=== PATIENT | male | born 1940 | race Caucasian/White ===

== ENCOUNTER 2022-02-05 22:41 | Inpatient (IN) | payer OTHER ==
[2022-02-05] MEDS ORDERED: Vancomycin 1 GM/200 ML BAG ONE (22:52)
[2022-02-05] MEDS ORDERED: Cefepime 2 GM VIAL ONE (22:52)
[2022-02-05 23:10] LABS: #Eosinphils 0.1 thou/uL (0.0-0.7); #Lymphocytes 0.7 thou/uL (1.20-3.40); #Monocytes 1.2 thou/uL (0.11-0.59); #Neutrophils 14.5 thou/uL (1.40-6.50); %Basophils 0.2 % (0.0-1.0); %Eosinophils 0.8 % (0.0-10.0); %Lymphocytes 4.4 % (21.0-51.0); %Monocytes 7.4 % (0.0-10.0); %Neutrophils 87.2 % (42.0-75.0); Hemoglobin 11.8 g/dL (14.0-18.0); Mean Corpuscular HGB CONC 33.3 g/dL (32.0-36.0); Mean Corpuscular Hemoglobin 35.5 pg (27.0-31.0); Platelet Count 325 thou/uL (130-400); RBC Distribution Width 13.7 % (11.5-14.5); Red Blood Cell (RBC) Count 3.33 mill/uL (4.70-6.10); White Blood Cell (WBC) Count 16.6 thou/uL (4.8-10.8)
[2022-02-05 23:27] LABS: MDiff Complete? YES; Macrocytosis SLIGHT = 6-15 cells (100X) (0-5/hpf); Platelet Morphology Comment Appears Adequate; Toxic Granulation SLIGHT
[2022-02-05 23:30] LABS: ALT (SGPT) 23 U/L (8-55); AST (SGOT) 49 U/L (5-34); Albumin 2.5 g/dL (3.4-4.8); Alkaline Phosphatase 187 U/L (40-110); Anion Gap 15 mmol/L (10-20); BUN (Urea Nitrogen) 43 mg/dL (8.4-25.7); Bilirubin, Total 0.9 mg/dL (0.2-1.2); Calc. Creatinine Clearance 0 mL/min (70-130); Calcium 9.4 mg/dL (7.8-10.44); Carbon Dioxide 26 mmol/L (23-31); Chloride 105 mmol/L (98-107); Estimated GFR 46; Globulin 4.5 g/dL (2.4-3.5); Glucose 127 mg/dL (83-110); Potassium 4.4 mmol/L (3.5-5.1); Sodium 142 mmol/L (136-145)
[2022-02-06 00:56] LABS: Bacteria/HPF 2+ HPF (None Seen); Bilirubin Negative (Negative); Blood, Urine 3+ (Negative); Clarity Extra Turbid (Clear); Glucose, Urine (Dipstick) Normal (Negative); Ketone, Urine Negative (Negative); Leukocyte 500 Leu/uL (Negative); Nitrite Negative (Negative); Protein, Urine (Dipstick) 100 mg/dL (Neg-Trace); Specific Gravity, Urine 1.005 (1.002-1.036); Urobilinogen Normal mg/dL (Less than 2); WBC/HPF Greater than 50 HPF (0-3)
[2022-02-06 00:57] LABS: RBC/HPF 21-50 HPF (0-3)
[2022-02-06 04:02] LABS: SARS-CoV-2 NAA Rapid Test DETECTED (NotDetected)
[2022-02-06] MEDS: Dextrose 5 % And 0.9 % NaCl 1,000 ML IV SCH ×2 (04:23→07:50)
[2022-02-06] MEDS ORDERED: Vancomycin HCl 500 MG in Sodium Chloride 0.9% 100 ML IVPB SCH (05:30)
[2022-02-06 06:15] LABS: #Eosinphils 0.2 thou/uL (0.0-0.7); #Lymphocytes 0.5 thou/uL (1.20-3.40); #Monocytes 1.2 thou/uL (0.11-0.59); #Neutrophils 16.2 thou/uL (1.40-6.50); %Lymphocytes 2.7 % (21.0-51.0); %Monocytes 6.5 % (0.0-10.0); %Neutrophils 89.8 % (42.0-75.0); Hemoglobin 10.7 g/dL (14.0-18.0); Mean Corpuscular HGB CONC 32.3 g/dL (32.0-36.0); Mean Corpuscular Hemoglobin 34.3 pg (27.0-31.0); Platelet Count 263 thou/uL (130-400); RBC Distribution Width 13.6 % (11.5-14.5); Red Blood Cell (RBC) Count 3.11 mill/uL (4.70-6.10); White Blood Cell (WBC) Count 18.1 thou/uL (4.8-10.8)
[2022-02-06 06:34] LABS: Anion Gap 14 mmol/L (10-20); BUN (Urea Nitrogen) 40 mg/dL (8.4-25.7); Calc. Creatinine Clearance 55 mL/min (70-130); Calcium 8.3 mg/dL (7.8-10.44); Carbon Dioxide 19 mmol/L (23-31); Chloride 110 mmol/L (98-107); Estimated GFR 59; Glucose 123 mg/dL (83-110); Potassium 3.8 mmol/L (3.5-5.1); Sodium 139 mmol/L (136-145)
[2022-02-06] MEDS ORDERED: Iopamidol 0 ML ONE (07:16)
[2022-02-06] MEDS ORDERED: fentaNYL Citrate/PF 100 MCG/2 ML SYRINGE ONE (07:23)
[2022-02-06] MEDS ORDERED: Albumin 5% 500 ML ONE ×2 (07:28→07:30)
[2022-02-06] MEDS ORDERED: Ketamine 50 MG/ML (10ML VIAL) ONE (07:28)
[2022-02-06] MEDS ORDERED: Phenylephrine 10 MG/ML VIAL ONE ×2 (07:28→08:00)
[2022-02-06] MEDS ORDERED: Norepinephrine 4 MG/4 ML VIAL ONE (07:28)
[2022-02-06] MEDS ORDERED: Dexmedetomidine 200 MCG/2 ML VIAL ONE (07:28)
[2022-02-06] MEDS ORDERED: Sodium Bicarb 50 MEQ/50 ML Abboject 8.4% SYRINGE ONE (07:28)
[2022-02-06] MEDS ORDERED: Sodium Bicarbonate 2.5 MEQ/5 ML VIAL ONE (07:30)
[2022-02-06] MEDS ORDERED: Albumin 5% 0 ML ONE (07:30)
[2022-02-06] MEDS ORDERED: Succinylcholine 200 MG/10 ml SYRINGE FS ONE (08:00)
[2022-02-06] MEDS ORDERED: Dexamethasone 20 MG/5 ML VIAL ONE (08:00)
[2022-02-06] MEDS ORDERED: Rocuronium Bromide 10 MG/ML (10ML VIAL) ONE (08:00)
[2022-02-06] MEDS ORDERED: Ondansetron PF 4 MG/2 ML Vial ONE (08:00)
[2022-02-06] MEDS ORDERED: SUGAMMADEX SODIUM 200 MG/2 ML VIAL ONE (08:42)
[2022-02-06] MEDS ORDERED: Lorazepam 2 MG/ML VIAL IM PRN (09:10)
[2022-02-06] MEDS ORDERED: Lorazepam 1 MG TAB PO PRN (09:10)
[2022-02-06] MEDS ORDERED: Electrolyte Replacement Protocol 1 EACH FS SCH (09:15)
[2022-02-06] MEDS: Cefepime 2 GM in Sodium Chloride 0.9% 100 ML IVPB SCH (11:45)
[2022-02-06] MEDS: Thiamine HCl 200 MG/2 ML VIAL SLOW IVP SCH (11:45)
[2022-02-06] MEDS ORDERED: Heparin 1,000 UNITS/ML VIAL ONE (12:34)
[2022-02-06] MEDS ORDERED: Iopamidol 370 76% 100 ML VIAL ONE (15:43)
[2022-02-06] MEDS: Vancomycin 1 GM in Premix Bag 1 BAG IVPB SCH (22:24)
[2022-02-07] MEDS: Cefepime 2 GM in Sodium Chloride 0.9% 100 ML IVPB SCH ×3 (01:11→23:02)
[2022-02-07 04:30] LABS: Anion Gap 13 mmol/L (10-20); BUN (Urea Nitrogen) 35 mg/dL (8.4-25.7); Calc. Creatinine Clearance 63 mL/min (70-130); Calcium 8.7 mg/dL (7.8-10.44); Carbon Dioxide 21 mmol/L (23-31); Chloride 114 mmol/L (98-107); Estimated GFR 69; Glucose 127 mg/dL (83-110); Magnesium 2.2 mg/dL (1.6-2.6); Sodium 144 mmol/L (136-145)
[2022-02-07 05:17] LABS: Band 18 % (5-11); Hemoglobin 9.4 g/dL (14.0-18.0); Lymphocytes 3 % (21-51); MDiff Complete? YES; Mean Corpuscular Hemoglobin 35.7 pg (27.0-31.0); Mean Platelet Volume 8.4 fL (7.4-10.4); Monocytes 3 % (0-10); Neutrophil 76 % (42-75); Platelet Count 257 thou/uL (130-400); RBC Distribution Width 13.6 % (11.5-14.5); Red Blood Cell (RBC) Count 2.64 mill/uL (4.70-6.10); White Blood Cell (WBC) Count 13.8 thou/uL (4.8-10.8)
[2022-02-07] MEDS: Folic Acid 1 MG TAB PO SCH (07:23)
[2022-02-07] MEDS: Ascorbic Acid 500 mg Chewable Tablet PO SCH (07:23)
[2022-02-07] MEDS: Zinc Sulfate 220 MG CAP PO SCH (07:23)
[2022-02-07] MEDS: Enoxaparin Sodium 30 MG/0.3 ML SYRINGE SC SCH (07:23)
[2022-02-07] MEDS: Multivit, Therapeutic 1 TAB PO SCH (07:23)
[2022-02-07] MEDS ORDERED: Lorazepam 1 MG TAB PO PRN (09:10)
[2022-02-07] MEDS: Thiamine HCl 200 MG/2 ML VIAL SLOW IVP SCH (11:47)
[2022-02-07 21:41] LABS: Vancomycin, Trough 17.9 ug/mL
[2022-02-07] MEDS: Vancomycin 1 GM in Premix Bag 1 BAG IVPB SCH (22:54)
[2022-02-08 04:01] LABS: #Monocytes 0.8 thou/uL (0.11-0.59); #Neutrophils 13.9 thou/uL (1.40-6.50); %Eosinophils 0.2 % (0.0-10.0); %Lymphocytes 6.1 % (21.0-51.0); %Monocytes 4.8 % (0.0-10.0); %Neutrophils 88.8 % (42.0-75.0); Hemoglobin 9.7 g/dL (14.0-18.0); Mean Corpuscular HGB CONC 33.1 g/dL (32.0-36.0); Mean Corpuscular Hemoglobin 35.3 pg (27.0-31.0); Mean Platelet Volume 8.4 fL (7.4-10.4); Platelet Count 252 thou/uL (130-400); RBC Distribution Width 13.5 % (11.5-14.5); Red Blood Cell (RBC) Count 2.75 mill/uL (4.70-6.10); White Blood Cell (WBC) Count 15.7 thou/uL (4.8-10.8)
[2022-02-08 04:47] LABS: Anion Gap 15 mmol/L (10-20); BUN (Urea Nitrogen) 37 mg/dL (8.4-25.7); Calc. Creatinine Clearance 71 mL/min (70-130); Calcium 8.7 mg/dL (7.8-10.44); Carbon Dioxide 18 mmol/L (23-31); Chloride 114 mmol/L (98-107); Estimated GFR 79; Glucose 107 mg/dL (83-110); Magnesium 2.4 mg/dL (1.6-2.6); Potassium 4.8 mmol/L (3.5-5.1); Sodium 142 mmol/L (136-145)
[2022-02-08] MEDS: Folic Acid 1 MG TAB PO SCH (07:26)
[2022-02-08] MEDS: Ascorbic Acid 500 mg Chewable Tablet PO SCH (07:26)
[2022-02-08] MEDS: Multivit, Therapeutic 1 TAB PO SCH (07:26)
[2022-02-08] MEDS: Zinc Sulfate 220 MG CAP PO SCH (07:26)
[2022-02-08] MEDS: Enoxaparin Sodium 30 MG/0.3 ML SYRINGE SC SCH (07:27)
[2022-02-08] MEDS: Thiamine HCl 200 MG/2 ML VIAL SLOW IVP SCH (07:27)
[2022-02-08] MEDS ORDERED: Lorazepam 1 MG TAB PO PRN (09:10)
[2022-02-08] MEDS: Ketorolac Tromethamine 30 MG/ML VIAL IVP PRN ×2 (10:37→20:57)
[2022-02-08] MEDS: Cefepime 2 GM in Sodium Chloride 0.9% 100 ML IVPB SCH ×2 (13:07→22:41)
[2022-02-08 16:47] LABS: Anion Gap 11 mmol/L (10-20); BUN (Urea Nitrogen) 38 mg/dL (8.4-25.7); Calc. Creatinine Clearance 62 mL/min (70-130); Carbon Dioxide 24 mmol/L (23-31); Chloride 112 mmol/L (98-107); Estimated GFR 67; Glucose 93 mg/dL (83-110); Potassium 3.7 mmol/L (3.5-5.1); Sodium 143 mmol/L (136-145)
[2022-02-08] MEDS: Vancomycin 1 GM in Premix Bag 1 BAG IVPB SCH (20:56)
[2022-02-09 06:15] LABS: #Eosinphils 0.3 thou/uL (0.0-0.7); #Lymphocytes 1.2 thou/uL (1.20-3.40); #Monocytes 0.8 thou/uL (0.11-0.59); #Neutrophils 9.6 thou/uL (1.40-6.50); %Basophils 0.2 % (0.0-1.0); %Eosinophils 2.1 % (0.0-10.0); %Lymphocytes 10.3 % (21.0-51.0); %Monocytes 6.8 % (0.0-10.0); %Neutrophils 80.5 % (42.0-75.0); Hemoglobin 10.6 g/dL (14.0-18.0); Mean Corpuscular HGB CONC 32.4 g/dL (32.0-36.0); Mean Corpuscular Hemoglobin 34.3 pg (27.0-31.0); Mean Platelet Volume 8.1 fL (7.4-10.4); Platelet Count 245 thou/uL (130-400); RBC Distribution Width 13.4 % (11.5-14.5); White Blood Cell (WBC) Count 11.9 thou/uL (4.8-10.8)
[2022-02-09 06:44] LABS: Anion Gap 12 mmol/L (10-20); BUN (Urea Nitrogen) 45 mg/dL (8.4-25.7); Calc. Creatinine Clearance 68 mL/min (70-130); Calcium 8.7 mg/dL (7.8-10.44); Carbon Dioxide 20 mmol/L (23-31); Chloride 113 mmol/L (98-107); Estimated GFR 76; Glucose 86 mg/dL (83-110); Magnesium 2.3 mg/dL (1.6-2.6); Potassium 4.2 mmol/L (3.5-5.1); Sodium 141 mmol/L (136-145)
[2022-02-09] MEDS: Ascorbic Acid 500 mg Chewable Tablet PO SCH (09:31)
[2022-02-09] MEDS: Zinc Sulfate 220 MG CAP PO SCH (09:31)
[2022-02-09] MEDS: Thiamine 100 MG TAB PO SCH (09:31)
[2022-02-09] MEDS: Multivit, Therapeutic 1 TAB PO SCH (09:31)
[2022-02-09] MEDS: Enoxaparin Sodium 30 MG/0.3 ML SYRINGE SC SCH (09:31)
[2022-02-09] MEDS: Folic Acid 1 MG TAB PO SCH (09:31)
[2022-02-09] MEDS: Ketorolac Tromethamine 30 MG/ML VIAL IVP PRN (11:52)
[2022-02-09] MEDS: Cefepime 2 GM in Sodium Chloride 0.9% 100 ML IVPB SCH ×2 (11:54→22:03)
[2022-02-09 12:39] VITALS: BMI 26.5
[2022-02-09] MEDS: Acetaminophen 325 MG TAB PO PRN ×2 (15:46→19:29)
[2022-02-09] MEDS: Vancomycin 1 GM in Premix Bag 1 BAG IVPB SCH ×2 (22:03→22:46)
[2022-02-09] MEDS: HYDROcodone/Acetaminophen 5/325 mg Tablet PO PRN (22:05)
[2022-02-09 22:19] LABS: Vancomycin, Trough 26.3 ug/mL
[2022-02-09] MEDS ORDERED: Vancomycin 0.001 GM in Premix Bag 1 BAG IVPB SCH (22:45)
[2022-02-10] MEDS: Ascorbic Acid 500 mg Chewable Tablet PO SCH (09:16)
[2022-02-10] MEDS: Enoxaparin Sodium 30 MG/0.3 ML SYRINGE SC SCH (09:17)
[2022-02-10] MEDS: Folic Acid 1 MG TAB PO SCH (09:17)
[2022-02-10] MEDS: Thiamine 100 MG TAB PO SCH (09:17)
[2022-02-10] MEDS: Zinc Sulfate 220 MG CAP PO SCH (09:17)
[2022-02-10] MEDS: Multivit, Therapeutic 1 TAB PO SCH (09:17)
[2022-02-10] MEDS: Ketorolac Tromethamine 30 MG/ML VIAL IVP PRN (11:27)
[2022-02-10] MEDS: Cefepime 2 GM in Sodium Chloride 0.9% 100 ML IVPB SCH ×2 (11:34→22:48)
[2022-02-10] MEDS: Acetaminophen 325 MG TAB PO PRN (16:52)
[2022-02-10 21:17] LABS: Vancomycin, Random 21.4 ug/mL (See Comment)
[2022-02-10] MEDS ORDERED: Vancomycin 0.001 GM in Premix Bag 1 BAG IVPB SCH (22:00)
[2022-02-10] MEDS: HYDROcodone/Acetaminophen 5/325 mg Tablet PO PRN (23:12)
[2022-02-11] MEDS: Melatonin 3 MG TAB PO PRN (00:36)
[2022-02-11] MEDS: Morphine 2 MG/ML VIAL SLOW IVP PRN ×4 (05:08→17:41)
[2022-02-11] MEDS: Ascorbic Acid 500 mg Chewable Tablet PO SCH (08:53)
[2022-02-11] MEDS: Acetaminophen 325 MG TAB PO PRN (08:53)
[2022-02-11] MEDS: Zinc Sulfate 220 MG CAP PO SCH (08:53)
[2022-02-11] MEDS: Thiamine 100 MG TAB PO SCH (08:53)
[2022-02-11] MEDS: Multivit, Therapeutic 1 TAB PO SCH (08:53)
[2022-02-11] MEDS: Folic Acid 1 MG TAB PO SCH (08:53)
[2022-02-11] MEDS: Enoxaparin Sodium 30 MG/0.3 ML SYRINGE SC SCH (08:53)
[2022-02-11 09:40] LABS: Vancomycin, Random 17.5 ug/mL (See Comment)
[2022-02-11] MEDS ORDERED: Cefepime 1 GM in Sodium Chloride 0.9% 100 ML IVPB SCH ×2 (11:00→14:00)
[2022-02-11] MEDS ORDERED: Vancomycin HCl 750 MG in Sodium Chloride 0.9% 250 ML 250 ML IVPB SCH (11:00)
[2022-02-11] MEDS ORDERED: Cefepime 1 GM VIAL ONE (11:01)
[2022-02-11] MEDS: Phenazopyridine HCl 100 MG TAB PO SCH ×2 (13:46→22:24)
[2022-02-11] MEDS ORDERED: Meropenem 1 GM in Sodium Chloride 0.9% 100 ML IVPB SCH (22:00)
[2022-02-11] MEDS: Metoprolol Tartrate 25 MG TAB PO SCH (22:25)
[2022-02-12] MEDS: Meropenem 1 GM in Sodium Chloride 0.9% 100 ML IVPB SCH ×3 (05:37→21:12)
[2022-02-12] MEDS: Morphine 2 MG/ML VIAL SLOW IVP PRN ×5 (05:40→21:15)
[2022-02-12] MEDS: Multivit, Therapeutic 1 TAB PO SCH (09:09)
[2022-02-12] MEDS: Phenazopyridine HCl 100 MG TAB PO SCH ×3 (09:09→21:09)
[2022-02-12] MEDS: Enoxaparin Sodium 30 MG/0.3 ML SYRINGE SC SCH (09:09)
[2022-02-12] MEDS: Zinc Sulfate 220 MG CAP PO SCH (09:09)
[2022-02-12] MEDS: Metoprolol Tartrate 25 MG TAB PO SCH ×2 (09:09→21:10)
[2022-02-12] MEDS: Ascorbic Acid 500 mg Chewable Tablet PO SCH (09:09)
[2022-02-12] MEDS: Folic Acid 1 MG TAB PO SCH (09:09)
[2022-02-12] MEDS: Thiamine 100 MG TAB PO SCH (09:10)
[2022-02-12] MEDS: D5W-AA 4.25% with LYTES 1,000 ML IV SCH (16:41)
[2022-02-13] MEDS: Morphine 2 MG/ML VIAL SLOW IVP PRN ×3 (00:01→14:18)
[2022-02-13] MEDS: Meropenem 1 GM in Sodium Chloride 0.9% 100 ML IVPB SCH ×3 (05:40→22:28)
[2022-02-13 05:47] LABS: #Eosinphils 0.7 thou/uL (0.0-0.7); #Lymphocytes 1.2 thou/uL (1.20-3.40); #Neutrophils 8.6 thou/uL (1.40-6.50); %Basophils 0.4 % (0.0-1.0); %Eosinophils 6.5 % (0.0-10.0); %Lymphocytes 10.2 % (21.0-51.0); %Monocytes 8.5 % (0.0-10.0); %Neutrophils 74.5 % (42.0-75.0); Hemoglobin 10.5 g/dL (14.0-18.0); Mean Corpuscular Hemoglobin 33.6 pg (27.0-31.0); Mean Platelet Volume 9.3 fL (7.4-10.4); Platelet Count 224 thou/uL (130-400); Red Blood Cell (RBC) Count 3.13 mill/uL (4.70-6.10); White Blood Cell (WBC) Count 11.5 thou/uL (4.8-10.8)
[2022-02-13 06:09] LABS: Anion Gap 12 mmol/L (10-20); BUN (Urea Nitrogen) 35 mg/dL (8.4-25.7); Calc. Creatinine Clearance 84 mL/min (70-130); Calcium 8.7 mg/dL (7.8-10.44); Carbon Dioxide 20 mmol/L (23-31); Chloride 114 mmol/L (98-107); Estimated GFR 89; Glucose 122 mg/dL (83-110); Potassium 3.7 mmol/L (3.5-5.1); Sodium 142 mmol/L (136-145)
[2022-02-13] MEDS: D5W-AA 4.25% with LYTES 1,000 ML IV SCH (10:05)
[2022-02-13] MEDS: Ascorbic Acid 500 mg Chewable Tablet PO SCH (10:06)
[2022-02-13] MEDS: Folic Acid 1 MG TAB PO SCH (10:06)
[2022-02-13] MEDS: Enoxaparin Sodium 30 MG/0.3 ML SYRINGE SC SCH (10:06)
[2022-02-13] MEDS: Phenazopyridine HCl 100 MG TAB PO SCH ×3 (10:06→22:30)
[2022-02-13] MEDS: Zinc Sulfate 220 MG CAP PO SCH (10:07)
[2022-02-13] MEDS: Multivit, Therapeutic 1 TAB PO SCH (10:07)
[2022-02-13] MEDS: Thiamine 100 MG TAB PO SCH (10:07)
[2022-02-13] MEDS: Metoprolol Tartrate 25 MG TAB PO SCH ×2 (10:07→22:30)
[2022-02-13 10:54] LABS: Vancomycin, Trough 13.1 ug/mL
[2022-02-14] MEDS: Morphine 2 MG/ML VIAL SLOW IVP PRN ×2 (04:25→08:37)
[2022-02-14] MEDS: Meropenem 1 GM in Sodium Chloride 0.9% 100 ML IVPB SCH ×3 (05:23→21:59)
[2022-02-14] MEDS: D5W-AA 4.25% with LYTES 1,000 ML IV SCH (08:34)
[2022-02-14] MEDS: Enoxaparin Sodium 30 MG/0.3 ML SYRINGE SC SCH (08:34)
[2022-02-14] MEDS: Ascorbic Acid 500 mg Chewable Tablet PO SCH (08:35)
[2022-02-14] MEDS: Phenazopyridine HCl 100 MG TAB PO SCH ×3 (08:35→17:27)
[2022-02-14] MEDS: Folic Acid 1 MG TAB PO SCH (08:35)
[2022-02-14] MEDS: Thiamine 100 MG TAB PO SCH (08:35)
[2022-02-14] MEDS: Zinc Sulfate 220 MG CAP PO SCH (08:36)
[2022-02-14] MEDS: Multivit, Therapeutic 1 TAB PO SCH (08:36)
[2022-02-14] MEDS: Metoprolol Tartrate 25 MG TAB PO SCH ×2 (08:36→21:59)
[2022-02-14] MEDS ORDERED: Phenazopyridine HCl 97.5 MG TABLET PO SCH (09:00)
[2022-02-14] MEDS: ALPRAZolam 0.25 MG TAB PO PRN (12:55)
[2022-02-14] MEDS: Acetaminophen 325 MG TAB PO PRN (22:17)
[2022-02-14] MEDS: Melatonin 3 MG TAB PO PRN (22:18)
[2022-02-14] MEDS: Lorazepam 0.5 MG TAB PO PRN (22:18)
[2022-02-15] MEDS: D5W-AA 4.25% with LYTES 1,000 ML IV SCH ×2 (03:45→22:11)
[2022-02-15] MEDS: Meropenem 1 GM in Sodium Chloride 0.9% 100 ML IVPB SCH ×4 (04:29→21:39)
[2022-02-15] MEDS: Ondansetron PF 4 MG/2 ML Vial IVP PRN (06:05)
[2022-02-15] MEDS: Morphine 2 MG/ML VIAL SLOW IVP PRN (06:05)
[2022-02-15] MEDS: Phenazopyridine HCl 100 MG TAB PO SCH ×3 (08:58→17:33)
[2022-02-15] MEDS: Ascorbic Acid 500 mg Chewable Tablet PO SCH (08:59)
[2022-02-15] MEDS: Zinc Sulfate 220 MG CAP PO SCH (08:59)
[2022-02-15] MEDS: Enoxaparin Sodium 30 MG/0.3 ML SYRINGE SC SCH (09:00)
[2022-02-15] MEDS: Thiamine 100 MG TAB PO SCH (09:00)
[2022-02-15] MEDS: Metoprolol Tartrate 25 MG TAB PO SCH ×2 (09:00→21:38)
[2022-02-15] MEDS: Folic Acid 1 MG TAB PO SCH (09:00)
[2022-02-15] MEDS: Multivit, Therapeutic 1 TAB PO SCH (09:00)
[2022-02-15] MEDS: Acetaminophen 325 MG TAB PO PRN ×2 (09:11→21:39)
[2022-02-15] MEDS: Lorazepam 0.5 MG TAB PO PRN ×2 (09:12→21:39)
[2022-02-15] MEDS: Melatonin 3 MG TAB PO PRN (21:38)
[2022-02-16] MEDS: Meropenem 1 GM in Sodium Chloride 0.9% 100 ML IVPB SCH ×3 (05:55→20:20)
[2022-02-16] MEDS: Zinc Sulfate 220 MG CAP PO SCH (08:40)
[2022-02-16] MEDS: Folic Acid 1 MG TAB PO SCH (08:40)
[2022-02-16] MEDS: Acetaminophen 325 MG TAB PO PRN ×2 (08:40→20:25)
[2022-02-16] MEDS: Lorazepam 0.5 MG TAB PO PRN ×3 (08:40→23:27)
[2022-02-16] MEDS: Ascorbic Acid 500 mg Chewable Tablet PO SCH (08:40)
[2022-02-16] MEDS: Metoprolol Tartrate 25 MG TAB PO SCH ×2 (08:40→20:20)
[2022-02-16] MEDS: Ondansetron PF 4 MG/2 ML Vial IVP PRN (08:40)
[2022-02-16] MEDS: Enoxaparin Sodium 30 MG/0.3 ML SYRINGE SC SCH (08:41)
[2022-02-16] MEDS: Phenazopyridine HCl 100 MG TAB PO SCH ×3 (08:41→17:59)
[2022-02-16] MEDS: Multivit, Therapeutic 1 TAB PO SCH (08:41)
[2022-02-16] MEDS: Thiamine 100 MG TAB PO SCH (08:41)
[2022-02-16] MEDS: Morphine 2 MG/ML VIAL SLOW IVP PRN ×4 (09:37→23:27)
[2022-02-16] MEDS: D5W-AA 4.25% with LYTES 1,000 ML IV SCH (17:59)
[2022-02-16] MEDS: Melatonin 3 MG TAB PO PRN (20:19)
[2022-02-16] MEDS: ALPRAZolam 0.25 MG TAB PO PRN (23:27)
[2022-02-17] MEDS: Meropenem 1 GM in Sodium Chloride 0.9% 100 ML IVPB SCH ×3 (05:41→21:09)
[2022-02-17] MEDS: Metoprolol Tartrate 25 MG TAB PO SCH ×2 (08:57→21:09)
[2022-02-17] MEDS: Zinc Sulfate 220 MG CAP PO SCH (08:57)
[2022-02-17] MEDS: Multivit, Therapeutic 1 TAB PO SCH (08:58)
[2022-02-17] MEDS: Thiamine 100 MG TAB PO SCH (08:58)
[2022-02-17] MEDS: Phenazopyridine HCl 100 MG TAB PO SCH ×3 (08:58→17:17)
[2022-02-17] MEDS: Folic Acid 1 MG TAB PO SCH (08:58)
[2022-02-17] MEDS: Enoxaparin Sodium 30 MG/0.3 ML SYRINGE SC SCH (08:58)
[2022-02-17] MEDS: Ascorbic Acid 500 mg Chewable Tablet PO SCH (08:58)
[2022-02-17] MEDS: D5W-AA 4.25% with LYTES 1,000 ML IV SCH (13:27)
[2022-02-17] MEDS: Morphine 2 MG/ML VIAL SLOW IVP PRN (21:08)
[2022-02-17] MEDS: Melatonin 3 MG TAB PO PRN (21:09)
[2022-02-18] MEDS: ALPRAZolam 0.25 MG TAB PO PRN (01:31)
[2022-02-18] MEDS: Morphine 2 MG/ML VIAL SLOW IVP PRN ×2 (01:31→04:12)
[2022-02-18] MEDS: Lorazepam 0.5 MG TAB PO PRN ×2 (04:12→20:51)
[2022-02-18] MEDS: Meropenem 1 GM in Sodium Chloride 0.9% 100 ML IVPB SCH ×3 (06:15→20:52)
[2022-02-18] MEDS: Phenazopyridine HCl 100 MG TAB PO SCH ×3 (09:00→17:43)
[2022-02-18] MEDS: Folic Acid 1 MG TAB PO SCH (09:00)
[2022-02-18] MEDS: Multivit, Therapeutic 1 TAB PO SCH (09:00)
[2022-02-18] MEDS: Enoxaparin Sodium 30 MG/0.3 ML SYRINGE SC SCH (09:00)
[2022-02-18] MEDS: Ascorbic Acid 500 mg Chewable Tablet PO SCH (09:01)
[2022-02-18] MEDS: Zinc Sulfate 220 MG CAP PO SCH (09:01)
[2022-02-18] MEDS: Metoprolol Tartrate 25 MG TAB PO SCH ×2 (09:01→20:51)
[2022-02-18] MEDS: Acetaminophen 325 MG TAB PO PRN ×2 (09:15→20:51)
[2022-02-18] MEDS: Thiamine 100 MG TAB PO SCH (09:16)
[2022-02-18] MEDS: D5W-AA 4.25% with LYTES 1,000 ML IV SCH (09:16)
[2022-02-18] MEDS: Melatonin 3 MG TAB PO PRN (20:52)
[2022-02-19] MEDS: ALPRAZolam 0.25 MG TAB PO PRN ×2 (02:40→21:04)
[2022-02-19] MEDS: Morphine 2 MG/ML VIAL SLOW IVP PRN ×2 (02:40→05:56)
[2022-02-19] MEDS: Lorazepam 0.5 MG TAB PO PRN ×2 (05:56→11:50)
[2022-02-19] MEDS: Meropenem 1 GM in Sodium Chloride 0.9% 100 ML IVPB SCH ×3 (05:56→21:10)
[2022-02-19] MEDS: D5W-AA 4.25% with LYTES 1,000 ML IV SCH (06:50)
[2022-02-19] MEDS: Ascorbic Acid 500 mg Chewable Tablet PO SCH (08:37)
[2022-02-19] MEDS: Multivit, Therapeutic 1 TAB PO SCH (08:37)
[2022-02-19] MEDS: Zinc Sulfate 220 MG CAP PO SCH (08:37)
[2022-02-19] MEDS: Folic Acid 1 MG TAB PO SCH (08:37)
[2022-02-19] MEDS: Thiamine 100 MG TAB PO SCH (08:37)
[2022-02-19] MEDS: Phenazopyridine HCl 100 MG TAB PO SCH ×3 (08:37→16:56)
[2022-02-19] MEDS: Enoxaparin Sodium 30 MG/0.3 ML SYRINGE SC SCH (08:38)
[2022-02-19] MEDS: Metoprolol Tartrate 25 MG TAB PO SCH ×2 (08:40→21:03)
[2022-02-19] MEDS ORDERED: Bisacodyl 5 MG TAB PO PRN (14:52)
[2022-02-19] MEDS ORDERED: Bisacodyl 5 MG TAB PO SCH (15:00)
[2022-02-19] MEDS ORDERED: Megestrol Acetate 40 MG TAB PO SCH (15:00)
[2022-02-19] MEDS: Acetaminophen 325 MG TAB PO PRN (22:40)
[2022-02-20] MEDS: Morphine 2 MG/ML VIAL SLOW IVP PRN ×2 (00:45→16:15)
[2022-02-20] MEDS: Melatonin 3 MG TAB PO PRN (00:45)
[2022-02-20] MEDS: D5W-AA 4.25% with LYTES 1,000 ML IV SCH ×2 (04:54→22:14)
[2022-02-20] MEDS: Lorazepam 0.5 MG TAB PO PRN ×3 (04:56→22:04)
[2022-02-20] MEDS: Meropenem 1 GM in Sodium Chloride 0.9% 100 ML IVPB SCH ×3 (05:47→21:56)
[2022-02-20] MEDS: Enoxaparin Sodium 30 MG/0.3 ML SYRINGE SC SCH (08:24)
[2022-02-20] MEDS: Zinc Sulfate 220 MG CAP PO SCH (08:24)
[2022-02-20] MEDS: Metoprolol Tartrate 25 MG TAB PO SCH ×2 (08:24→22:03)
[2022-02-20] MEDS: Phenazopyridine HCl 100 MG TAB PO SCH ×3 (08:24→17:53)
[2022-02-20] MEDS: Ascorbic Acid 500 mg Chewable Tablet PO SCH (08:24)
[2022-02-20] MEDS: Folic Acid 1 MG TAB PO SCH (08:24)
[2022-02-20] MEDS: Multivit, Therapeutic 1 TAB PO SCH (08:24)
[2022-02-20] MEDS: Megestrol Acetate 40 MG TAB PO SCH (08:25)
[2022-02-20] MEDS: Thiamine 100 MG TAB PO SCH (08:26)
[2022-02-20 09:07] LABS: #Eosinphils 0.4 thou/uL (0.0-0.7); #Lymphocytes 0.8 thou/uL (1.20-3.40); #Monocytes 0.8 thou/uL (0.11-0.59); #Neutrophils 5.2 thou/uL (1.40-6.50); %Basophils 0.3 % (0.0-1.0); %Eosinophils 6.1 % (0.0-10.0); %Lymphocytes 10.5 % (21.0-51.0); %Monocytes 10.8 % (0.0-10.0); %Neutrophils 72.4 % (42.0-75.0); Hemoglobin 9.9 g/dL (14.0-18.0); Mean Corpuscular HGB CONC 32.6 g/dL (32.0-36.0); Mean Platelet Volume 9.2 fL (7.4-10.4); Platelet Count 242 thou/uL (130-400); RBC Distribution Width 14.2 % (11.5-14.5); White Blood Cell (WBC) Count 7.2 thou/uL (4.8-10.8)
[2022-02-20 09:25] LABS: Anion Gap 11 mmol/L (10-20); BUN (Urea Nitrogen) 22 mg/dL (8.4-25.7); Calc. Creatinine Clearance 87 mL/min (70-130); Calcium 9.1 mg/dL (7.8-10.44); Carbon Dioxide 24 mmol/L (23-31); Chloride 105 mmol/L (98-107); Estimated GFR 90; Glucose 111 mg/dL (83-110); Potassium 3.9 mmol/L (3.5-5.1); Sodium 136 mmol/L (136-145)
[2022-02-20] MEDS ORDERED: Trospium 20 MG TAB PO PRN (17:32)
[2022-02-20] MEDS: Acetaminophen 325 MG TAB PO PRN (22:04)
[2022-02-21] MEDS: Meropenem 1 GM in Sodium Chloride 0.9% 100 ML IVPB SCH ×3 (05:07→21:08)
[2022-02-21] MEDS: Trospium 20 MG TAB PO SCH ×2 (09:01→21:09)
[2022-02-21] MEDS: Folic Acid 1 MG TAB PO SCH (09:01)
[2022-02-21] MEDS: Thiamine 100 MG TAB PO SCH (09:01)
[2022-02-21] MEDS: Phenazopyridine HCl 100 MG TAB PO SCH ×3 (09:01→18:29)
[2022-02-21] MEDS: Zinc Sulfate 220 MG CAP PO SCH (09:01)
[2022-02-21] MEDS: Metoprolol Tartrate 25 MG TAB PO SCH ×2 (09:01→21:09)
[2022-02-21] MEDS: Enoxaparin Sodium 40 MG/0.4 ML SYRINGE SC SCH (09:01)
[2022-02-21] MEDS: Ascorbic Acid 500 mg Chewable Tablet PO SCH (09:02)
[2022-02-21] MEDS: Megestrol Acetate 40 MG TAB PO SCH (09:02)
[2022-02-21] MEDS: Multivit, Therapeutic 1 TAB PO SCH (09:02)
[2022-02-21] MEDS: Acetaminophen 325 MG TAB PO PRN ×2 (15:51→21:09)
[2022-02-21] MEDS: D5W-AA 4.25% with LYTES 1,000 ML IV SCH (18:29)
[2022-02-21] MEDS: Lorazepam 0.5 MG TAB PO PRN (21:09)
[2022-02-22] MEDS: Meropenem 1 GM in Sodium Chloride 0.9% 100 ML IVPB SCH ×3 (05:39→23:10)
[2022-02-22 06:03] LABS: #Eosinphils 0.5 thou/uL (0.0-0.7); #Lymphocytes 0.8 thou/uL (1.20-3.40); #Monocytes 0.7 thou/uL (0.11-0.59); #Neutrophils 3.6 thou/uL (1.40-6.50); %Basophils 0.8 % (0.0-1.0); %Eosinophils 8.3 % (0.0-10.0); %Lymphocytes 14.4 % (21.0-51.0); %Monocytes 12.8 % (0.0-10.0); %Neutrophils 63.7 % (42.0-75.0); Hemoglobin 8.6 g/dL (14.0-18.0); Mean Corpuscular HGB CONC 31.9 g/dL (32.0-36.0); Mean Corpuscular Hemoglobin 33.2 pg (27.0-31.0); Mean Platelet Volume 9.1 fL (7.4-10.4); Platelet Count 197 thou/uL (130-400); RBC Distribution Width 13.7 % (11.5-14.5); White Blood Cell (WBC) Count 5.6 thou/uL (4.8-10.8)
[2022-02-22 06:25] LABS: Anion Gap 10 mmol/L (10-20); BUN (Urea Nitrogen) 26 mg/dL (8.4-25.7); Calc. Creatinine Clearance 86 mL/min (70-130); Calcium 8.7 mg/dL (7.8-10.44); Carbon Dioxide 24 mmol/L (23-31); Chloride 106 mmol/L (98-107); Estimated GFR 90; Glucose 89 mg/dL (83-110); Sodium 136 mmol/L (136-145)
[2022-02-22] MEDS: Thiamine 100 MG TAB PO SCH (08:54)
[2022-02-22] MEDS: Phenazopyridine HCl 100 MG TAB PO SCH ×3 (08:54→17:57)
[2022-02-22] MEDS: Multivit, Therapeutic 1 TAB PO SCH (08:54)
[2022-02-22] MEDS: Ascorbic Acid 500 mg Chewable Tablet PO SCH (08:54)
[2022-02-22] MEDS: Zinc Sulfate 220 MG CAP PO SCH (08:54)
[2022-02-22] MEDS: Megestrol Acetate 40 MG TAB PO SCH (08:54)
[2022-02-22] MEDS: Trospium 20 MG TAB PO SCH ×2 (08:54→20:13)
[2022-02-22] MEDS: Metoprolol Tartrate 25 MG TAB PO SCH ×2 (08:54→20:14)
[2022-02-22] MEDS: Enoxaparin Sodium 40 MG/0.4 ML SYRINGE SC SCH (08:55)
[2022-02-22] MEDS: Folic Acid 1 MG TAB PO SCH (08:56)
[2022-02-22] MEDS: Acetaminophen 325 MG TAB PO PRN ×2 (14:57→20:13)
[2022-02-22] MEDS: D5W-AA 4.25% with LYTES 1,000 ML IV SCH (15:12)
[2022-02-22] MEDS: Lorazepam 0.5 MG TAB PO PRN (20:13)
[2022-02-22] MEDS: Melatonin 3 MG TAB PO PRN (20:13)
[2022-02-23] MEDS: Metoprolol Tartrate 25 MG TAB PO SCH ×2 (05:31→20:39)
[2022-02-23] MEDS: Meropenem 1 GM in Sodium Chloride 0.9% 100 ML IVPB SCH ×3 (05:32→20:39)
[2022-02-23] MEDS: Ascorbic Acid 500 mg Chewable Tablet PO SCH (09:23)
[2022-02-23] MEDS: Trospium 20 MG TAB PO SCH ×2 (09:24→20:38)
[2022-02-23] MEDS: Zinc Sulfate 220 MG CAP PO SCH (09:24)
[2022-02-23] MEDS: Thiamine 100 MG TAB PO SCH (09:24)
[2022-02-23] MEDS: Megestrol Acetate 40 MG TAB PO SCH (09:24)
[2022-02-23] MEDS: Folic Acid 1 MG TAB PO SCH (09:24)
[2022-02-23] MEDS: Phenazopyridine HCl 100 MG TAB PO SCH ×3 (09:24→17:32)
[2022-02-23] MEDS: Multivit, Therapeutic 1 TAB PO SCH (09:24)
[2022-02-23] MEDS ORDERED: Bupivacaine PF 0.5% 30 ML VIAL ONE (11:41)
[2022-02-23] MEDS ORDERED: PROPOFOL 200 MG/20 ML VIAL ONE (11:42)
[2022-02-23] MEDS ORDERED: Lidocaine 1% PF 5 ML VIAL ONE (11:42)
[2022-02-23] MEDS ORDERED: Ondansetron PF 4 MG/2 ML Vial ONE (11:42)
[2022-02-23] MEDS ORDERED: ePHEDrine 50 MG/ML VIAL ONE (11:42)
[2022-02-23] MEDS ORDERED: Phenylephrine 10 MG/ML VIAL ONE (11:42)
[2022-02-23] MEDS ORDERED: Promethazine HCl 25 MG/ML VIAL IM PRN (12:23)
[2022-02-23] MEDS ORDERED: Promethazine HCl 25 MG/ML VIAL IVPB PRN (12:23)
[2022-02-23] MEDS ORDERED: Ondansetron HCl/PF 4 MG/2 ML Vial IVP PRN (12:23)
[2022-02-23] MEDS ORDERED: Fentanyl 100 MCG/2 ML VIAL ONE (12:57)
[2022-02-23] MEDS: D5W-AA 4.25% with LYTES 1,000 ML IV SCH (14:45)
[2022-02-24] MEDS: Meropenem 1 GM in Sodium Chloride 0.9% 100 ML IVPB SCH ×2 (05:31→14:39)
[2022-02-24] MEDS: Folic Acid 1 MG TAB PO SCH (08:22)
[2022-02-24] MEDS: Zinc Sulfate 220 MG CAP PO SCH (08:22)
[2022-02-24] MEDS: Phenazopyridine HCl 100 MG TAB PO SCH ×3 (08:22→18:24)
[2022-02-24] MEDS: Trospium 20 MG TAB PO SCH (08:22)
[2022-02-24] MEDS: Ascorbic Acid 500 mg Chewable Tablet PO SCH (08:22)
[2022-02-24] MEDS: Megestrol Acetate 40 MG TAB PO SCH (08:22)
[2022-02-24] MEDS: Metoprolol Tartrate 25 MG TAB PO SCH (08:22)
[2022-02-24] MEDS: Multivit, Therapeutic 1 TAB PO SCH (08:23)
[2022-02-24] MEDS: Thiamine 100 MG TAB PO SCH (08:26)
[2022-02-24 15:22] VITALS: BP 96/59; TEMP 97.7
[2022-02-24] MEDS: ALPRAZolam 0.25 MG TAB PO PRN (19:21)
[2022-02-24] MEDS ORDERED: Enoxaparin Sodium 40 MG/0.4 ML SYRINGE SC SCH (21:00)
== END 2022-02-24 19:51 | DRG 853 ==
LOC: ERS 22:41 → IMCU/EMU 02-06 01:08 → T4-A 02-09 01:18
PROVIDERS: ADMIT Internal Medicine; ATTEND Internal Medicine
PROC: 0JBC0ZZ Excision of Pelvic Region Subcutaneous Tissue and Fascia, Open Approach (ICD-10-PCS; principal; 2022-02-06)
PROC: 3E03329 Introduction of Other Anti-infective into Peripheral Vein, Percutaneous Approach (ICD-10-PCS; 2022-02-06)
PROC: 0T9B8ZZ Drainage of Bladder, Via Natural or Artificial Opening Endoscopic (ICD-10-PCS; 2022-02-06)
PROC: 02HV33Z Insertion of Infusion Device into Superior Vena Cava, Percutaneous Approach (ICD-10-PCS; 2022-02-15)
PROC: B548ZZA Ultrasonography of Superior Vena Cava, Guidance (ICD-10-PCS; 2022-02-15)
PROC: 0T9B80Z Drainage of Bladder with Drainage Device, Via Natural or Artificial Opening Endoscopic (ICD-10-PCS; 2022-02-20)
PROC: 0T9B80Z Drainage of Bladder with Drainage Device, Via Natural or Artificial Opening Endoscopic (ICD-10-PCS; 2022-02-23)
DX: A41.9 Sepsis, unspecified organism (principal); G93.41 Metabolic encephalopathy; U07.1 COVID-19; N39.0 Urinary tract infection, site not specified; K61.1 Rectal abscess; L02.215 Cutaneous abscess of perineum; I96 Gangrene, not elsewhere classified; Z16.20 Resistance to unspecified antibiotic; N17.9 Acute kidney failure, unspecified; L03.315 Cellulitis of perineum; N36.0 Urethral fistula; Z66 Do not resuscitate; R65.20 Severe sepsis without septic shock; I12.9 Hypertensive chronic kidney disease with stage 1 through stage 4 chronic kidney disease, or unspecified chronic kidney disease; E11.22 Type 2 diabetes mellitus with diabetic chronic kidney disease; N18.9 Chronic kidney disease, unspecified; T83.021A Displacement of indwelling urethral catheter, initial encounter; F32.A Depression, unspecified; F10.10 Alcohol abuse, uncomplicated; I48.0 Paroxysmal atrial fibrillation; F43.10 Post-traumatic stress disorder, unspecified; R33.9 Retention of urine, unspecified; B96.89 Other specified bacterial agents as the cause of diseases classified elsewhere; H54.7 Unspecified visual loss; N36.8 Other specified disorders of urethra; Z79.899 Other long term (current) drug therapy; Z90.49 Acquired absence of other specified parts of digestive tract; I69.398 Other sequelae of cerebral infarction; Z78.1 Physical restraint status
CPT/HCPCS: 36415; 36416; 36569; 51702; 71045; 72193; 74176; 80048; 80053; 80202; 81003; 81015; 82565; 83605; 83735; 84484; 85025; 87040; 87070; 87076; 87077; 87086; 87149; 87186; 87205; 93005; 96361; 96365; 97139; C1751; J0692; J1100; J1644; J1650; J1885; J2185; J2270; J2370; J2405; J2704; J3010; J3370; J3411; J3490; J7042; J7050; P9045; Q9967; S0020; S0179; U0002